=== PATIENT | female | born 1950 | race Caucasian/White ===

== ENCOUNTER 2023-12-23 18:06 | Emergency (ER) | payer MEDICARE, SELFPAY ==
[2023-12-23 18:13] VITALS: BP 199/80
--- NOTE | 2023-12-23 18:16 | ED.PDOC.TRB ---
ED Provider Triage
-
Patient seen by provider in Triage?: Seen in Triage
Attestation: A medical screening examination has been initiated by a qualified medical provider. Based on the assessment performed at this time, it has been determined that an emergent medical condition may exist and the patient has been informed
that further medical evaluation and possible additional diagnostic testing may be needed.
HPI: 73-year-old female presents for evaluation of acute onset of epigastric pain/lower chest discomfort beginning at approximately 1:30 PM today. She had recently finished eating a chicken salad sandwich and the pain began. Denies any exertional
pleuritic nature to the pain. No history of coronary artery disease
GENERAL: Alert , in no apparent distress
EYE: No visual abnormalities.
NECK: Trachea midline
ENT: No visible abnormalities.
LUNGS: No acute respiratory distress
NEUROLOGICAL: Alert and oriented
SKIN: Skin intact. No visible changes.
MUSCULOSKELETAL: Moving extremities normally
PSYCH: Normal and appropriate interaction.
Assessment: EKG is nonischemic. Will check cardiac labs, appears stable
This is a medical evaluation conducted in person to initiate diagnostic evaluation and provide initial therapeutics. Please see further documentation by the treating clinician.
[2023-12-23 18:27] LABS: % Basophils 0.3 % (0-2); % Eosinophils 1.2 % (0-6); % Immature Granulocytes 0.2 % (0-0.5); % Monocytes 8.5 % (1.7-9.3); % Neutrophils 59.8 % (42.2-75.2); Absolute Eosinophils 0.1 10^3/uL (0-0.7); Absolute Lymphocytes 1.7 10^3/uL (1.2-3.4); Absolute Monocytes 0.5 10^3/uL (0.1-0.6); Absolute Neutrophils 3.5 10^3/uL (1.4-6.5); Hematocrit 42.2 % (37.0-47.0); Hemoglobin 14.9 g/dL (12.0-16.0); Mean Corp Hgb Conc. 35.3 g/dL (33.0-37.0); Mean Corpuscular Hgb 28.7 pg (27.0-31.0); Mean Corpuscular Volume 81.3 fL (81.0-99.0); Mean Platelet Volume 9.6 fL (7.4-10.4); Nucleated Red Blood Cells % 0 %; Platelet Count 239 10^3/uL (130-400); Red Blood Cell Count 5.19 10^6/uL (4.20-5.40); Red Cell Dist. Width 12.9 % (11.5-14.5); White Blood Cell Count 5.8 10^3/uL (4.8-10.8)
[2023-12-23 18:47] LABS: ALT (SGPT) 26 U/L (0-35); AST (SGOT) 30 U/L (14-36); Albumin 4.9 g/dl (3.5-5.0); Alkaline Phosphatase 66 U/L (38-126); Blood Urea Nitrogen 19 mg/dl (7-17); Calcium 10.6 mg/dl (8.4-10.2); Carbon Dioxide 25 mmol/L (22-30); Chloride 102 mmol/L (98-107); Glucose 126 mg/dl (70-99); Potassium 4.6 mmol/L (3.5-5.1); Sodium 141 mmol/L (135-145); Total Bilirubin 0.5 mg/dl (0.2-1.3); Total Protein 7.6 g/dl (6.3-8.2); eGFR > 60.00
[2023-12-23 18:59] LABS: Troponin I < 0.012 ng/ml
--- NOTE | 2023-12-23 20:54 | ED.GENMED ---
History of Present Illness
General
Chief Complaint: Chest Pain
Time Seen by Provider: 12/23/23 20:38
History of Present Illness
History of Present Illness:
73-year-old female with history of prediabetes presenting to the emergency department for chest discomfort. Patient reports around 130, she started to have substernal chest pain. Denies any exertional onset. Does report some nausea. Denies any
radiation of pain. Denies any known history of cardiac disease. Reports a stress test about 5 years ago. She took some Tums, thought maybe symptoms were secondary to indigestion, had eaten lunch prior to onset of symptoms. Reports that when she
came to the hospital initially for her pain, was about a 6 out of 10, now a 2 out of 10. Denies any difficulty breathing. Denies fever or cough. Denies changes in her stool. Denies additional acute medical complaints
Past History
Past History
ED Past Medical History: Hypercholesterolemia
ED Past Surgical History: Negative Cholecystectomy
Social History
Tobacco: Non-smoker
Phy Exam
Physical Exam
Physical Exam:
General: Well-appearing, no clinical signs of dehydration, nontoxic and in no acute distress
HEENT: protecting airway
Neck: appears supple
CV: Normal heart rate, regular rhythm
Resp: No accessory muscle use, no increased work of breathing, lungs clear to auscultation bilaterally
Abd: Soft and non-distended, no tenderness to palpation
Extremities: No deformities, no swelling, no erythema
Neuro: alert, no focal neurologic deficit
: deferred
Rectal: deferred
Psych: Normal affect
Skin: Intact
Scores
Heart Score for Chest Pain Patients
STEMI patient?: No
History: Slightly or Non-Suspicious
ECG: Normal
Age: >/= 65 years
Risk Factors: 1 or 2 Risk Factors
Troponin: </= Normal Limit
Heart Score for Chest Pain Patients: 3
Heart Score Risk: 2.5% MACE over next 6 weeks
Course
Orders/Labs/Results
Orders:
Orders
12/23/23 18:07
EKG [Electrocardiogram (*1)] Urgent
Reason for Study: Chest Pain
EKG- Treatment ONCE
12/23/23 18:15
CR Chest - 2 Views Urgent
Comment:
Reason For Exam: chest pain
12/23/23 18:21
Complete Blood Count/With Diff Urgent
Comprehensive Metabolic Panel Urgent
Troponin I Urgent
12/23/23 21:01
Troponin I Urgent
Abnormal Lab Results
12/23/23
18:21
BUN 19 H mg/dl
(7-17)
Glucose 126 H mg/dl
(70-99)
Calcium 10.6 H mg/dl
(8.4-10.2)
12/23/23 18:21
12/23/23 18:21
Vital Signs
Initial and Last Documented VS:
Initial Vital Signs
Temp Pulse Resp BP Pulse Ox
97.9 F 72 20 199/80 96
12/23/23 18:13 12/23/23 18:13 12/23/23 18:13 12/23/23 18:13 12/23/23 18:13
Last Documented Vital Signs
Temp Pulse Resp BP Pulse Ox
97.9 F 72 20 127/57 96
12/23/23 18:13 12/23/23 18:13 12/23/23 18:13 12/23/23 21:52 12/23/23 18:13
MDM/Problems Addressed
MDM/Problems Addressed:
73-year-old female with history of prediabetes presenting for substernal chest discomfort. Vital signs are significant for high blood pressure.
On exam, patient well-appearing, no acute distress or discomfort. Overall benign cardiac and pulmonary exam. Patient reports that symptoms have improved since arrival to the hospital, no interventions administered. She did however take Tums prior
to arrival. Possible gastric pathology. EKG obtained and patient's arrival, nonischemic, with lower suspicion for ACS. Laboratory analysis obtained prior to my assessment, undetectable troponin. At this time patient low risk for cardiac event.
Patient without respiratory symptoms, without concern for PE. Will obtain second troponin.
21:50 - Second troponin within normal limits, and chest x-ray without acute cardiopulmonary disease. Patient otherwise remained stable, blood pressure improved, without intervention. Feel stable for discharge, however with pulse and will follow-up
with PCP and cardiology for potential stress testing. Return precautions discussed and patient verbalized understanding
*EKG
Interpreted by ED Provider?: Yes
EKG Intrepretation Date: 12/23/23
EKG Intrepretation Time: 20:56
Interpretation: normal
Comparison EKG: no changes
Heart Rate: 71
Rate: normal
Rhythm: sinus
[place]: normal axis
Interval: normal interval
QRS Pattern: normal QRS
Ischemia: no ischemia
*Critical Care Note
Total Time (30-74mins, 75-104mins- exclusive of procedures): Not Applicable
ED Attending Note
-
Portions of this chart may have been created with voice recognition software.� Occasional wrong word or��sound alike� substitutions may have occurred due to the inherent limitations of voice recognition software.
Discharge Plan
Departure
Patient Disposition: Home (Routine Discharge)
Date of Disposition: 12/23/23
Time of Disposition: 21:54
Patient with high blood pressure during this ER visit?: Yes
Condition: Good
Discharge Problem:
Chest pain, Hypertension
Instructions: Chest pain - Discharge instructions, BLOOD PRESSURE
Prescriptions:
No Action
cetirizine 10 MG tablet
10 mg PO HS
cinnamon bark 500 MG capsule
1,000 mg PO DAILY
omega-3 fatty acids-fish oil 1 EACH capsule
2 ea PO DAILY
calcium carbonate-vit D3-min 1 EACH tablet
1 ea PO BID
Cholesterol Medication
QPM
Patient Comments:
not sure of new medication maybe fenogravion 135mg
ondansetron [Zofran ODT] 8 MG tablet,disintegrating
8 mg PO TIDPRN PRN (Reason: vomiting) Qty: 15 0RF
hydromorphone [Dilaudid] 2 MG tablet
2 - 4 mg PO Q4HPRN PRN (Reason: pain) Qty: 20 0RF
lansoprazole [Prevacid] 30 MG capsule,delayed release(DR/EC)
30 mg PO HS Qty: 30 0RF
Referrals:
Manav Jane MD [Active] - (chest pain)
Maria Esther Waddell CRNP [Family Provider] -
Activity Restrictions/Additional Instructions:
You were seen in the emergency department for chest pain
You were found to have normal laboratory analysis and EKG
Please follow-up closely with your primary care physician as well as the food service assistant.
Return to the emergency department for any worsening of your symptoms, or any development of chest pain, difficulty breathing, abdominal pain with persistent vomiting and inability to tolerate food or liquid by mouth (concern for dehydration),
weakness, headache or confusion, fever greater than 100.4, or any additional symptoms that are concerning to you.
Thank you for choosing [facility].
Interventions
Interventions:
*Risk Screen - Suicide Last Done: 12/23/23 18:13
*General Assessment Last Done: 12/23/23 18:13
*Neglect/Abuse Screening Last Done: 12/23/23 18:13
ED- Fall Risk Assessment Last Done: 12/23/23 22:01
*Nursing Disposition Last Done: 12/23/23 22:01
ED- Cardiac Assessment Last Done: 12/23/23 20:55
Discharge Date and Time
Discharge Date/Time: 12/23/23 22:01
Print Language: TURKISH
[2023-12-23 21:29] LABS: Troponin I < 0.012 ng/ml
[2023-12-23 21:52] VITALS: BP 127/57
== END 2023-12-23 22:01 | disposition home or self-care (01) ==
LOC: EMR 18:06
PROVIDERS: Physician Assistant; EMERGENCY PHYSICIAN Student in an Organized Health Care Education/Training Program; FAMILY PHYSICIAN Nurse Practitioner Family
DX: I10 Essential (primary) hypertension (principal); R07.2 Precordial pain; R11.0 Nausea; R10.13 Epigastric pain; R73.03 Prediabetes; E78.00 Pure hypercholesterolemia, unspecified
CPT/HCPCS: 99283; 71046; 80053; 84484; 85025; 93005

== ENCOUNTER → 2024-01-21 14:49 | Outpatient (REF) | payer MEDICARE, SELFPAY | LOC: WDC 14:49 | PROVIDERS: ATTENDING PHYSICIAN Nurse Practitioner Family | DX: Z12.31 Encounter for screening mammogram for malignant neoplasm of breast (principal) | CPT/HCPCS: 77063; 77067 ==

== ENCOUNTER → 2025-02-01 07:49 | Outpatient (REF) | payer MEDICARE, SELFPAY | LOC: WDC 07:49 | PROVIDERS: ATTENDING PHYSICIAN Nurse Practitioner Family | DX: Z12.31 Encounter for screening mammogram for malignant neoplasm of breast (principal) | CPT/HCPCS: 77063; 77067 ==